=== PATIENT | male | born 1970 | race Caucasian/White ===

== ENCOUNTER 2019-02-24 19:09 | Emergency (ER) | payer OTHER, SELFPAY ==
[2019-02-24 19:17] VITALS: BP 142/85; PULSE 86; RESP 16; TEMP 36.7; O2SAT 98; BMI 29.5
== END 2019-02-24 22:06 | disposition left against medical advice (07) ==
LOC: ER 19:57
PROVIDERS: Emergency Provider Nurse Practitioner Family
DX: Z53.21 Procedure and treatment not carried out due to patient leaving prior to being seen by health care provider (principal)
CPT/HCPCS: 99281

== ENCOUNTER 2019-03-03 17:58 | Emergency (ER) | payer OTHER, SELFPAY ==
[2019-03-03 18:33] VITALS: PULSE 78; RESP 14; TEMP 36.7; O2SAT 97
--- NOTE | 2019-03-03 18:50 | W.ED.GENADLT ---
HPI - General Adult General: Stated complaint: left leg problems Time Seen by Provider: 03/03/19 18:34 History of Present Illness: HPI narrative: Patient has a varicose vein on his left lower extremity that have been bleeding off and on over the last week patient does have a pressure dressing. No other complaints or problems. He has been taking naproxen and ibuprofen for his chronic pain. Last few weeks. MD complaint: bleeding varicose vein Onset (ago): day(s) Location: lower extremity Pain Consistency: intermittent Relieving factors: immobilization Associated symptoms: Deny chest pain, dyspnea, headache(s), nausea, rash or vomiting Review of Systems Const: Denies: fever, chills or body aches Eyes: Denies: change in vision or blurry vision ENMT: Denies: throat pain or nasal congestion Card: Denies: chest pain or shortness of breath on exertion Resp: Denies: shortness of breath, productive cough or non-productive cough GI: Denies: abdominal pain, nausea or vomiting : Denies: difficulty urinating Musc: Denies: extremity pain Skin/Breast: Reports: skin tenderness (Varicose vein left lower extremity that bleeds when pressure not applied to it.); Denies: rash Neuro: Denies: headache Psych: Denies: anxiety or depression Robbin/Lymph: Denies: easy bruising PFSH ED PFSH: Statuses (acute, chronic, etc) shown below reflect problem list status as previously entered and may not be historically accurate Social History Smoking and tobacco status: former smoker Physical Exam Const: COMMON NORMALS: no apparent distress, average body habitus and oriented x3 HENMT: COMMON NORMALS: normocephalic HEAD & SCALP: normal to inspection and normocephalic FACE & SINUS: normal facial exam Eye: COMMON NORMALS: conjunctivae normal GENERAL EYE: normal appearance of both eyes CONJUNCTIVA: Yes conjunctivae normal Neck/C-Spine: COMMON NORMALS: no JVD Chest: COMMONS NORMALS: inspection of chest normal Resp: COMMON NORMALS: normal respiratory effort and clear to auscultation bilaterally AUSCULTATION: clear to auscultation bilaterally Cardio: COMMON NORMALS: no JVD, regular rate and regular rhythm RATE: regular rate RHYTHM: regular rhythm GI: COMMON NORMALS: normal to inspection, nondistended, normoactive bowel sounds Extremity: COMMON NORMALS: normal to inspection and full ROM OTHER: Has a varicose vein that is oozing blood left lower extremity. Anterior aspect ankle. No erythema noted. Neuro: COMMON NORMALS: oriented x3 Course Vital Signs: Vital signs: Vital Signs Temperature 98.1 F 03/03/19 18:33 Pulse Rate 78 03/03/19 18:33 Respiratory Rate 14 03/03/19 18:33 Pulse Oximetry 97 03/03/19 18:33 MDM - General Adult MDM Narrative: Medical decision making narrative: Pressure dressing applied to varicose vein. Coding Level of Care Code ED [employer] Specialist for Eboni Fowler
[2019-03-03 18:59] VITALS: BP 122/74; PULSE 82; RESP 14; TEMP 36.8; O2SAT 97
--- NOTE | 2019-03-06 11:15 | DCPLANNER ---
clinical education manager had message to schedule a follow up appointment for patient with a vascular surgeon. clinical education manager called [facility], spoke with Shaila, a follow up appointment is scheduled for Sunday, March 10, 2019 at 10:[address] Jeffrey. Clinic will call patient with appointment information.
--- NOTE | 2019-03-17 14:34 | DCPLANNER ---
Patient did attend appointment scheduled for 03.16.19 with [facility].
== END 2019-03-03 19:00 | disposition home or self-care (01) ==
LOC: ER 18:56
PROVIDERS: Emergency Provider Nurse Practitioner Family
DX: I83.92 Asymptomatic varicose veins of left lower extremity (principal); Z87.891 Personal history of nicotine dependence
CPT/HCPCS: 99281

== ENCOUNTER 2019-04-21 05:41 | Day surgery (SDC) | payer OTHER, SELFPAY ==
[2019-04-20 08:16] VITALS: BMI 28.8
[2019-04-21 06:05] VITALS: BP 152/82; PULSE 71; RESP 16; TEMP 36.7; O2SAT 99
--- NOTE | 2019-04-21 06:12 | W.PM.OPSUD ---
Surgery/Procedure H&P Update DATE OF PROCEDURE: April 21, 2019 DATE H&P PERFORMED: 04/06/19 H&P UPDATE INFORMATION: I have reviewed H&P completed within last 30 days, I have examined patient prior to procedure and No changes to prior documentation PREOP DIAGNOSIS: Spontaneous bleeding left lower extremity varicosity PRIMARY INDICATION FOR PROCEDURE: Bleeding left lower extremity varicosity PLANNED PROCEDURE: Operation Date: 04/21/19 07:00 Proposed Procedures Ligation of bleeding left lower extremity varicosities- Pedro Jeffrey MD
[2019-04-21] MEDS: sodium chloride 0.9% 1,000 ML 30 ML IV (06:20)
[2019-04-21 06:25] LABS: Basophils % 0.7 %; Eosinophils # 0.1 10^3/uL (0.0-0.8); Eosinophils % 1.2 %; Hematocrit 42.6 % (42.0-52.0); Hemoglobin 13.8 g/dL (11.7-16.6); Lymphocytes # 1.6 10^3/uL (0.8-4.8); Lymphocytes % 26.8 %; Mean Corpuscular HGB Conc 32.4 g/dL (30.0-36.0); Mean Corpuscular Volume 86.4 fL (80-94); Mean Platelet Volume 11.1 fL (7.4-10.4); Monocytes # 0.8 10^3/uL (0.2-0.9); Monocytes % 12.3 %; Neutrophils # 3.6 10^3/uL (1.8-7.7); Neutrophils % 58.7 %; Nucleated Red Blood Cells % 0 %; Platelet Count 187 10^3/cmm (130-400); Red Blood Count 4.93 10^6/uL (4.1-5.3); Red Cell Distribution Width 12.5 % (12.1-15.1); White Blood Count 6.1 10^3/uL (4.0-10.0)
--- NOTE | 2019-04-21 06:28 | ANES.PREANE2 ---
Pre-Anesthetic Assessment Pre-Anesthetic Assessment: Height/Weight: Height 1.75 m Weight 88.451 kg Temp Pulse Resp BP Pulse Ox 98.1 F 71 16 152/82 99 04/21/19 06:05 04/21/19 06:05 04/21/19 06:05 04/21/19 06:05 04/21/19 06:05 Preop Diagnosis: Spontaneous bleeding left lower extremity varicosity Proposed Procedure: Operation Date: 04/21/19 07:00 Proposed Procedures p Vein Stripping/Vein Ligation(Left) - Pedro Jeffrey MD Last intake: Intake Last Liquid Date 04/20/19 Last Liquid Time 20:00 Last Solid Date 04/20/19 Last Solid Time 20:00 Social: Packs per day: 1 Pack years: 12 Comment: quit Exam: Pre-Anes Outpt Exam: alert, oriented x 3, clear to auscultation bilaterally and regular rate & rhythm Airway: Submandibular: WNL Cervical ROM: WNL MP: 1 Neuropsych: Neuropsych: Anxiety and GARCES Comments: hx migrane, last 2 years Anesthetic Plan: ASA status: 2 Anesthesia: MAC Meds/Allergies Current Medications: Current Medications Generic Name Dose Route Start Last Admin Trade Name Freq PRN Reason Stop Dose Admin Sodium Chloride 1,000 mls @ 30 ml s/hr 04/20/19 14:00 04/21/19 06:20 Sodium Chloride 0.9% IV 04/21/19 13:59 30 mls/hr .Q24H RICK Administration PFSH Anesthesia PFSH: Social History Smoking and tobacco status: former smoker Alcohol intake: never Marital status: Number of children: 0 Data Anesthesia CBC & Chem 7: 04/21/19 06:10 Other Labs: Laboratory Results - last 48 hr 04/21/19 06:10 WBC 6.1 RBC 4.93 Hgb 13.8 Hct 42.6 MCV 86.4 MCH 28.0 MCHC 32.4 RDW 12.5 Plt Count 187 MPV 11.1 H Neut % (Auto) 58.7 Lymph % (Auto) 26.8 Archule[place] % (Auto) 12.3 Eos % (Auto) 1.2 Baso % (Auto) 0.7 Neut # (Auto) 3.6 Lymph # (Auto) 1.6 Archuleta # (Auto) 0.8 Eos # (Auto) 0.1 Baso # (Auto) 0.0 Nucleated RBC % (auto) 0 Nucleated RBCs # 0.0 Cardiac Studies: No Data to Display
[2019-04-21 06:39] LABS: INR 0.98 (0.8-1.2)
[2019-04-21 06:44] LABS: Anion Gap 16.1 (5-19); Blood Urea Nitrogen 20 mg/dL (6-20); Calcium 9.5 mg/dL (8.5-10.5); Carbon Dioxide 25 mmol/L (22-29); Chloride 103 mmol/L (98-107); Glomerular Filtration Rate 119.4 mL/min (90-130); Glucose 106 mg/dL (65-115); Osmolality Calculated 287 mOsm/kg (285-295); Potassium 4.1 mmol/L (3.5-5.1); Sodium 140 mmol/L (136-145)
[2019-04-21] MEDS: vancomycin 1,000 MG SDV 1000 MG IRRIGATION (08:00)
[2019-04-21] MEDS: lidocaine 1% INJ 20 mL 10 ML XX (08:06)
[2019-04-21 08:51] VITALS: BP 108/72; PULSE 77; RESP 16; TEMP 36.3; O2SAT 95
--- NOTE | 2019-04-21 08:58 | P.OP_ITS ---
Operative Report Date of procedure: April 21, 2019 Pre-op Diagnosis: Spontaneous bleeding left lower extremity varicosity Procedure Done: Ligation of bleeding varicosities of distal left lower extremity Surgeon: Pedro Jeffrey Anesthesia: MAC and Local (7 cc) Complications: None Condition: stable Disposition: same day Brief History: 48-year-old gentleman with a spontaneous bleeding varicosity just above the left medial malleolus. Prior history for ORIF of left lower extremity with increased varicosities distal to this area of prior surgery. Patient refused venous duplex ultrasonography to assess for reflux despite strong encouragement. We have offered to attempt ligation of this problematic varicosity with understanding that there may be recurrence. Procedure: Mr. Espana was taken operating room theater underwent IV conscious sedation anesthesia monitoring to be carefully positioned. He was placed in reverse Trendelenburg position where ultrasound was utilized to assess the problematic varicosity just above the left medial malleolus. Entire left lower extremity from the knee distally was sterilely prepped and draped. 1% lidocaine was infiltrated over the problematic area and #15 scalpel utilized to incise the skin. As expected, medially beneath the dermal layer there was a plethora of venous plexus with numerous bridging branches which were controlled with micro- hemostats. Cautery and suture was utilized to control these problematic areas though I expect they do still extend further than the operative area. This would be consistent with his prior orthopedic procedure several years ago. Once completed that all problematic varicosities were excised or better rated, we was irrigated with antibiotic solution. Hemostasis confirmed. The skin was then reapproximated with interrupted 3 oh mattress suture as well as simple sutures of 3-0 nylon. Pressure was held to confirm hemostasis. A sterile pressure dressing was then applied. He was awakened from IV conscious sedation and returned to the outpatient surgery department in stable condition. I will follow-up with him in clinic next week and again encouraged him to allow us to proceed with venous duplex interrogation to ascertain as to whether RF catheter ablation may be of benefit.
[2019-04-21 09:06] VITALS: BP 123/71; PULSE 77; RESP 16; TEMP 36.6; O2SAT 96
== END 2019-04-21 09:40 | disposition home or self-care (01) ==
PROVIDERS: PCP Nurse Practitioner Family; Visit Provider Thoracic Surgery (Cardiothoracic Vascular Surgery)
PROC: (CPT 37785; principal; 2019-04-21 07:30)
DX: I83.892 Varicose veins of left lower extremity with other complications (principal); Z87.891 Personal history of nicotine dependence; Z82.49 Family history of ischemic heart disease and other diseases of the circulatory system
CPT/HCPCS: 37785; 12345; 80048; 85025; 85610; J0690; J2001; J2250; J2704; J3010; J3370; J7030